=== PATIENT | male | born 1990 | race Caucasian/White ===

== ENCOUNTER → 2020-03-19 | Day surgery (SDC) | payer OTHER ==
[~2020-03-19] MED LIST: CARAFATE1 GM PO; LEVAQUIN750 MG PO; PROTONIX40 MG PO; ZOLOFT50 MG PO
== END | disposition home or self-care (01) ==
LOC: FAS 07:35
DX: K21.00 Gastro-esophageal reflux disease with esophagitis, without bleeding (principal); K22.10 Ulcer of esophagus without bleeding; K29.70 Gastritis, unspecified, without bleeding; K44.9 Diaphragmatic hernia without obstruction or gangrene; K31.7 Polyp of stomach and duodenum; K92.0 Hematemesis; K29.80 Duodenitis without bleeding; Z20.822 Contact with and (suspected) exposure to COVID-19; Z87.19 Personal history of other diseases of the digestive system; Z80.0 Family history of malignant neoplasm of digestive organs; Z88.1 Allergy status to other antibiotic agents; Z88.2 Allergy status to sulfonamides; Z78.9 Other specified health status; Z87.891 Personal history of nicotine dependence
CPT/HCPCS: J2704; J7120